=== PATIENT | female | born 1965 | race Caucasian/White ===

== ENCOUNTER 2021-03-13 14:02 | Emergency (ER) | payer OTHER ==
[~2021-03-13] VITALS: Ht 154.9 cm; Wt 78.1 kg
[2021-03-13] MEDS ORDERED: CYCLOBENZAPRINE 10 MG TABLET. PO ONE (15:00)
[2021-03-13] MEDS ORDERED: KETOROLAC 15 MG/ML VIAL. IM ONE (15:00)
--- NOTE | 2021-03-13 15:06 | PHYS DOC ---
General Adult EDM: Chief Complaint: BACK PAIN OR INJURY HPI: HPI: Patient is a 55-year-old female presents with sciatic nerve pain on left leg. Patient states that she was seen by her work comp physician on and placed on a Medrol Dosepak and muscle relaxer. Patient states that she has gotten no relief from medication and the pain has actually gotten worse. Patient started steroids on Monday. Patient denies urinary retention or loss of stool. Denies known injury. (SHELBI BALTAZAR APRN) Review of Systems: Review of Systems: Constitutional: Denies fever or chills Eyes: Denies change in visual acuity HENT: Denies nasal congestion or sore throat Respiratory: Denies cough or shortness of breath Cardiovascular: Denies chest pain or edema GI: Denies abdominal pain, nausea, vomiting, bloody stools or diarrhea : Denies dysuria Musculoskeletal: Reports lower back pain radiates into left leg and knee Integument: Denies rash Neurologic: Denies headache, focal weakness or sensory changes Endocrine: Denies polyuria or polydipsia Lymphatic: Denies swollen glands Psychiatric: Denies depression or anxiety (SHELBI BALTAZAR APRN) Current Medications: Current Meds: Current Medications Medications (Trade) Dose Ordered Sig/Kira Start Time Stop Time Status Last Admin Dose Admin Cyclobenzaprine HCl (Flexeril) 10 mg 1X ONCE 03/13/21 15:00 03/13/21 15:01 UNV Ketorolac Tromethamine (Toradol 15mg Vial) 15 mg 1X ONCE 03/13/21 15:00 03/13/21 15:01 UNV (SHELBI BALTAZAR APRN) Physical Exam: PE: Constitutional: Well developed, well nourished, no acute distress, non-toxic appearance. [] HENT: Normocephalic, atraumatic, bilateral external ears normal, oropharynx moist, no oral exudates, nose normal. [] Eyes: PERRLA, EOMI, conjunctiva normal, no discharge. [] Neck: Normal range of motion, no tenderness, supple, no stridor. [] Cardiovascular:Heart rate regular rhythm, no murmur [] Lungs & Thorax: Bilateral breath sounds clear to auscultation [] Abdomen: Bowel sounds normal, soft, no tenderness, no masses, no pulsatile masses. [] Skin: Warm, dry, no erythema, no rash. [] Back: Lower back tenderness, no CVA tenderness. [] Extremities: Left leg tenderness, no cyanosis, no clubbing, ROM intact, no edema. [] Neurologic: Alert and oriented X 3, normal motor function, normal sensory function, no focal deficits noted. [] Psychologic: Affect normal, judgement normal, mood normal. [] (SHELBI BALTAZAR APRN) EKG: EKG: [] (SHELBI BALTAZAR APRN) Radiology/Procedures: Radiology/Procedures: [] (SHELBI BALTAZAR APRN) Heart Score: C/O Chest Pain: No Risk Factors: Risk Factors: DM, Current or recent (<one month) smoker, HTN, HLP, family history of CAD, obesity. Risk Scores: Score 0 - 3: 2.5% MACE over next 6 weeks - Discharge Home Score 4 - 6: 20.3% MACE over next 6 weeks - Admit for Clinical Observation Score 7 - 10: 72.7% MACE over next 6 weeks - Early Invasive Strategies (SHELBI BALTAZAR APRN) Course & Med Decision Making: Course & Med Decision Making Pertinent Labs and Imaging studies reviewed. (See chart for details) [] 55-year-old female presents with sciatic nerve pain on her left leg that radiates down her buttocks into her knee. Patient started taking Medrol Dosepak yesterday and muscle relaxer with no relief. Patient had a x-ray done at work comp doctor which was negative for injury. Patient given Flexeril and Toradol. Will reassess pain. Patient states her symptoms have decreased. Patient sent home with a prescription for Flexeril. Advised patient to still take ibuprofen and Medrol Dosepak. Patient will need to follow-up with her work comp physician next week. Patient to return to emergency room if she has worsening symptoms or concerns. Patient is appreciative and okay with discharge plan. (SHELBI BALTAZAR APRN) Dragon Disclaimer: Dragon Disclaimer: This electronic medical record was generated, in whole or in part, using a voice recognition dictation system. (SHELBI BALTAZAR APRN) Attending Co-Sign The patient was seen and interviewed as well as examined at the bedside. The chart was reviewed. The case was discussed. Agree with the plan of care. (ALYSSIA CARREON DO) Departure Departure: Impression: Primary Impression: Sciatic nerve pain Qualified Codes: M54.32 - Sciatica, left side Disposition: HOME / SELF CARE / HOMELESS Condition: STABLE Referrals: PCP,UNKNOWN (PCP) Patient Instructions: Sciatica, [id number] Additional Instructions: You are seen emergency room for sciatic nerve pain. You were given Flexeril and Toradol for pain. Continue taking your Medrol Dosepak that you are prescribed. You can also take ibuprofen at home. Please return emergency room with worsening symptoms or concerns EMERGENCY DEPARTMENT GENERAL DISCHARGE INSTRUCTIONS Thank you for coming to [facility] ([facility]) today and trusting us with you care. We trust that you had a positivie experience in our Emergency Department. If you wish to speak to the department management, you may call the director at [phone]. YOUR FOLLOW UP INSTRUCTIONS ARE FOLLOWS: 1. Do you have a private Doctor? If you do not have a private doctor, please ask for a resource list of physicians or clinics that may be able to assist you with follow up care. 2. The Emergency Physician has interpreted your x-rays. The X-Ray specialist will also review them. If there is a change in the findings, you will be notified in 48 hours when at all possible. 3. A lab test or culture has been done, your results will be reviewed and you will be notified if you need a change in treatment. ADDITIONAL INSTRUCTIONS AND INFORMATION: 1. Your care today has been supervised by a physician who is specially trained in emergency care. Many problems require more than one evaluation for a complete diagnosis and treatment. We recommend that you schedule your follow up appointment as recommended to ensure complete treatment of you illness or injury. If you are unable to obtain follow up care and continue to have a problem, or if your condition worsens, we recommend that you return to the ED. 2. We are not able to safely determine your condition over the phone nor are we able to give sound medical advice over the phone. For these safety reasons, if you call for medical advice we will ask you to come to the ED for further evaluation. 3. If you have any questions regarding these discharge instructions please call the ED at [phone]. SAFETY INFORMATION: In the interest of safety, wellness, and injury prevention; we encourage you to wear your sealbelt, if you smoke; quite smoking, and we encourage family to use a protective helmet for bicycling and other sporting events that present an increased risk for head injury. IF YOUR SYMPTOMS WORSEN OR NEW SYMPTOMS DEVELOP, OR YOU HAVE CONCERNS ABOUT YOUR CONDITION; OR IF YOUR CONDITION WORSENS WHILE YOU ARE WAITING FOR YOUR FOLLOW UP APPOINTMENT; EITHER CONTACT YOUR PRIMARY CARE DOCTOR, THE PHYSICIAN WHOSE NAME AND NUMBER YOU WERE GIVEN, OR RETURN TO THE ED IMMEDIATELY. Scripts Cyclobenzaprine Hcl (CYCLOBENZAPRINE HCL) 10 Mg Tablet 1 TAB PO TID for PAIN for 10 Days, #30 TAB Prov: SHELBI BALTAZAR APRN 03/13/21 SHELBI BALTAZAR APRN March 13, 2021 15:06 ALYSSIA CARREON DO March 14, 2021 06:18
[2021-03-13] MEDS ORDERED: CYCL-331 PO (15:56)
[2021-03-13 16:15] VITALS: BP 98/76
[2021-03-14] MEDS ORDERED: TRAM50TA PO (18:41)
== END 2021-03-13 16:11 | disposition home or self-care (01) ==
LOC: ER 14:02
DX: M54.42 Lumbago with sciatica, left side (principal)
CPT/HCPCS: 96372; 99283; J1885

== ENCOUNTER 2021-03-14 17:33 | Emergency (ER) | payer OTHER ==
[~2021-03-14] VITALS: Ht 154.9 cm; Wt 78.1 kg
[~2021-03-14 17:33] MED LIST: CYCL-331 PO
[2021-03-14] MEDS: KETOROLAC 15 MG/ML VIAL. IM ONE (18:02)
[2021-03-14 18:11] VITALS: BP 98/76
[2021-03-14] MEDS: traMADol 50 MG TABLET PO ONE (18:34)
[2021-03-14] MEDS ORDERED: TRAM50TA PO (18:41)
--- NOTE | 2021-03-14 18:41 | PHYS DOC ---
Past History Past Medical History: Diabetes (SHELBI BALTAZAR APRN) Alcohol Use: None (SHELBI BALTAZAR APRN) General Adult EDM: Chief Complaint: BACK PAIN - NO INJURY HPI: HPI: Patient is a 5-year-old female who presents with lower back pain that radiates down her left leg. Patient was seen here yesterday for same symptoms. Patient was seen by the work comp physician on but pain is not revolved resolving. (SHELBI BALTAZAR APRN) Review of Systems: Review of Systems: Constitutional: Denies fever or chills Eyes: Denies change in visual acuity HENT: Denies nasal congestion or sore throat Respiratory: Denies cough or shortness of breath Cardiovascular: Denies chest pain or edema GI: Denies abdominal pain, nausea, vomiting, bloody stools or diarrhea : Denies dysuria Musculoskeletal: Reports lower back pain that radiates down her left leg Integument: Denies rash Neurologic: Denies headache, focal weakness or sensory changes Endocrine: Denies polyuria or polydipsia Lymphatic: Denies swollen glands Psychiatric: Denies depression or anxiety (SHELBI BALTAZAR APRN) Current Medications: Current Meds: Current Medications Medications (Trade) Dose Ordered Sig/Kira Start Time Stop Time Status Last Admin Dose Admin Acetaminophen/ Hydrocodone Bitart (Lortab 5/325) 1 tab 1X ONCE 03/14/21 18:45 03/14/21 18:22 DC Ketorolac Tromethamine (Toradol 15mg Vial) 15 mg 1X ONCE 03/14/21 18:15 03/14/21 18:16 DC 03/14/21 18:02 15 MG Tramadol HCl (Ultram) 50 mg 1X ONCE 03/14/21 18:45 03/14/21 18:46 (SHELBI BALTAZAR APRN) Allergies: Allergies: Allergies Coded Allergies Type Severity Reaction Last Updated Verified cefaclor Allergy Unknown 03/13/21 Yes (SHELBI BALTAZAR APRN) Physical Exam: PE: Constitutional: Well developed, well nourished, no acute distress, non-toxic appearance. [] HENT: Normocephalic, atraumatic, bilateral external ears normal, oropharynx moist, no oral exudates, nose normal. [] Eyes: PERRLA, EOMI, conjunctiva normal, no discharge. [] Neck: Normal range of motion, no tenderness, supple, no stridor. [] Cardiovascular:Heart rate regular rhythm, no murmur [] Lungs & Thorax: Bilateral breath sounds clear to auscultation [] Abdomen: Bowel sounds normal, soft, no tenderness, no masses, no pulsatile m asses. [] Skin: Warm, dry, no erythema, no rash. [] Back: No tenderness, no CVA tenderness. [] Extremities: No tenderness, no cyanosis, no clubbing, ROM intact, no edema. [] Neurologic: Alert and oriented X 3, normal motor function, normal sensory function, no focal deficits noted. [] Psychologic: Affect normal, judgement normal, mood normal. [] (SHELBI BALTAZAR APRN) Current Patient Data: Vital Signs: Vital Signs Date Time Temp Pulse Resp B/P (MAP) Pulse Ox O2 Delivery O2 Flow Rate FiO2 03/14/21 18:11 97.7 97 22 98/76 (83) 100 Room Air (SHELBI BALTAZAR APRN) EKG: EKG: [] (SHELBI BALTAZAR APRN) Radiology/Procedures: Radiology/Procedures: [] (SHELBI BALTAZAR APRN) Heart Score: C/O Chest Pain: No Risk Factors: Risk Factors: DM, Current or recent (<one month) smoker, HTN, HLP, family history of CAD, obesity. Risk Scores: Score 0 - 3: 2.5% MACE over next 6 weeks - Discharge Home Score 4 - 6: 20.3% MACE over next 6 weeks - Admit for Clinical Observation Score 7 - 10: 72.7% MACE over next 6 weeks - Early Invasive Strategies (SHELBI BALTAZAR APRN) Course & Med Decision Making: Course & Med Decision Making Pertinent Labs and Imaging studies reviewed. (See chart for details) [] 55-year-old female presents with sciatic nerve pain. Patient was seen yesterday and given a Toradol shot along with Flexeril to take at home. Patient is also taking prednisone that was given to her by her work comp physician. Patient states that pain is increased with walking. Gave patient a Toradol injection and tramadol to help with pain. (SHELBI BALTAZAR APRN) Dragon Disclaimer: Dragon Disclaimer: This electronic medical record was generated, in whole or in part, using a voice recognition dictation system. (SHELBI BALTAZAR APRN) Departure Departure: Impression: Primary Impression: Sciatic nerve pain Qualified Codes: M54.32 - Sciatica, left side Disposition: 01 HOME / SELF CARE / HOMELESS Condition: STABLE Referrals: MAAME LINN DO (PCP) Patient Instructions: Sciatica, [id number] Additional Instructions: EMERGENCY DEPARTMENT GENERAL DISCHARGE INSTRUCTIONS Thank you for coming to [facility] ([facility]) today and trusting us with you care. We trust that you had a positivie experience in our Emergency Department. If you wish to speak to the department management, you may call the director at [phone]. YOUR FOLLOW UP INSTRUCTIONS ARE FOLLOWS: 1. Do you have a private Doctor? If you do not have a private doctor, please ask for a resource list of physicians or clinics that may be able to assist you with follow up care. 2. The Emergency Physician has interpreted your x-rays. The X-Ray specialist will also review them. If there is a change in the findings, you will be notified in 48 hours when at all possible. 3. A lab test or culture has been done, your results will be reviewed and you will be notified if you need a change in treatment. ADDITIONAL INSTRUCTIONS AND INFORMATION: 1. Your care today has been supervised by a physician who is specially trained in emergency care. Many problems require more than one evaluation for a complete diagnosis and treatment. We recommend that you schedule your follow up appointment as recommended to ensure complete treatment of you illness or injury. If you are unable to obtain follow up care and continue to have a problem, or if your condition worsens, we recommend that you return to the ED. 2. We are not able to safely determine your condition over the phone nor are we able to give sound medical advice over the phone. For these safety reasons, if you call for medical advice we will ask you to come to the ED for further evaluation. 3. If you have any questions regarding these discharge instructions please call the ED at [phone]. SAFETY INFORMATION: In the interest of safety, wellness, and injury prevention; we encourage you to wear your sealbelt, if you smoke; quite smoking, and we encourage family to use a protective helmet for bicycling and other sporting events that present an increased risk for head injury. IF YOUR SYMPTOMS WORSEN OR NEW SYMPTOMS DEVELOP, OR YOU HAVE CONCERNS ABOUT YOUR CONDITION; OR IF YOUR CONDITION WORSENS WHILE YOU ARE WAITING FOR YOUR FOLLOW UP A PPOINTMENT; EITHER CONTACT YOUR PRIMARY CARE DOCTOR, THE PHYSICIAN WHOSE NAME AND NUMBER YOU WERE GIVEN, OR RETURN TO THE ED IMMEDIATELY. Scripts Tramadol Hcl (TRAMADOL HCL) 50 Mg Tablet 50 MG PO PRN Q6HRS PRN for PAIN for 7 Days, #20 TAB Prov: SHELBI BALTAZAR APRN 03/14/21 Attending Signature Attending Signature I have participated in the care of this patient and I have reviewed and agree with all pertinent clinical information above including history, exam, and recommendations. (ELENO BOOKER MD) SHELBI BALTAZAR APRN March 14, 2021 18:41 ELENO BOOKER MD Mar 16, 2021 20:21
[2021-03-14] MEDS ORDERED: HYDROcodone/APAP 5/325MG 1 TAB TABLET PO ONE (18:45)
[2021-03-14] MEDS ORDERED: HYDROcodone/APAP 5/325MG 1 TAB TABLET ONE (19:14)
== END 2021-03-14 19:25 | disposition home or self-care (01) ==
LOC: ER 17:33
DX: M54.42 Lumbago with sciatica, left side (principal); E11.9 Type 2 diabetes mellitus without complications; Z88.1 Allergy status to other antibiotic agents
CPT/HCPCS: 96372; 99283; J1885